=== PATIENT | female | born 1975 | race Hispanic/Latino ===

== ENCOUNTER → 2018-10-31 | Outpatient (CLI) | payer OTHER ==
--- NOTE | 2018-10-31 12:01 | Diagnostic Imaging Report ---
Exam: Pelvic ultrasound. History: Vaginal bleeding Comparison: None Findings: Transabdominal and endovaginal sonographic evaluation of the pelvis. The uterus measures 10.2 x 4.9 x 6.8 cm no uterine masses identified. Endometrial stripe thickness is 3 millimeters. The right ovary measures 3.1 x 1.8 x 1.9 cm and appears unremarkable. The left ovary measures 2.6 x 2.1 x 2.1 cm and appears unremarkable. Multiple Nabothian cysts are seen in the cervix. No pelvic free fluid. Impression: No uterine or adnexal masses. Nabothian cysts in the cervix. Signed by: Foster Rodriguez MD on 10/31/2018 11:58 AM
== END ==
LOC: US 10:35
PROVIDERS: ATTEND Family Medicine
DX: D64.9 Anemia, unspecified (principal); N93.8 Other specified abnormal uterine and vaginal bleeding
CPT/HCPCS: 76830; 76856